=== PATIENT | female | born 1935 | race African-American/Black ===

== ENCOUNTER 2017-03-06 16:05 | Inpatient (IN) | payer OTHER ==
[~2017-03-06] VITALS: Ht 152.4 cm; Wt 36.8 kg
--- NOTE | 2017-03-06 17:00 | NUR ---
IV STARTED IN L AC X 1 ATTEMPT PER STAR KRISHNAMURTHY RN. SL IN PLACE.
[2017-03-06 18:30] LABS: PLATELET COUNT 372 K/uL (152-353)
[2017-03-06 18:32] VITALS: BP 172/69; TEMP 98; Ht 152.4 cm; Wt 36.8 kg
[2017-03-06] MEDS ORDERED: IRON COMPLEX OR (18:43)
[2017-03-06] MEDS ORDERED: ASCO500T18 PO (18:43)
[2017-03-06] MEDS ORDERED: NAMENDA5 MG OR (18:45)
[2017-03-06] MEDS ORDERED: PRAVASTATIN10 MG PO (18:46)
[2017-03-06] MEDS ORDERED: ZESTRIL40 MG OR (18:46)
[2017-03-06] MEDS ORDERED: DONE5TAB PO (18:47)
[2017-03-06] MEDS ORDERED: FLONASE AL50 MCG/ACT (18:48)
[2017-03-06 18:52] LABS: POTASSIUM 4.1 mmol/L (3.6-5.2)
[2017-03-06 20:00] VITALS: BP 129/58; TEMP 98.3
[2017-03-07] VITALS: BP 155/68; TEMP 98
[2017-03-07 03:35] LABS: PLATELET COUNT 275 K/uL (152-353)
[2017-03-07 04:00] VITALS: BP 121/53; TEMP 97.9
[2017-03-07 08:00] VITALS: BP 114/53; TEMP 98.8
[2017-03-07 12:00] VITALS: BP 100/53; TEMP 98.6
[2017-03-07 16:00] VITALS: BP 177/66; TEMP 98.8
[2017-03-07 17:40] LABS: POTASSIUM 3.9 mmol/L (3.6-5.2)
[2017-03-07 20:00] VITALS: BP 174/66; TEMP 97.9
[2017-03-08] VITALS: BP 161/68; TEMP 98.2
[2017-03-08 04:00] VITALS: BP 170/69; TEMP 98.1
[2017-03-08 05:31] LABS: POTASSIUM 3.6 mmol/L (3.6-5.2)
[2017-03-08 08:00] VITALS: BP 151/53; TEMP 98.5
[2017-03-08 10:16] LABS: PLATELET COUNT 323 K/uL (152-353)
[2017-03-08 12:00] VITALS: BP 151/61; TEMP 97.8
--- NOTE | 2017-03-08 16:30 | NUR ---
IV SITE D/C'D WITH TIP INTACT AND SITE CARE DONE. PT'S DAUGHTER GIVEN D/C INSTRUCTIONS AND SHE VERBALIZES UNDERSTANDING. PT INQUIRED AB OBTAINING EMERGENCY MEDICAID FOR PT AND PATRIC WILL GET IN TOUCH WITH PT ONCE SHE FINDS OUT IF PT QUALIFIES. PT OUT VIA W/C PER URVASHI NOVAK PCT WITH NAD.
== END 2017-03-08 16:16 | disposition home or self-care (01) | DRG 690 ==
LOC: MED/SURG 16:05
PROVIDERS: ADMIT Family Medicine
PROC: 30233N1 Transfusion of Nonautologous Red Blood Cells into Peripheral Vein, Percutaneous Approach (ICD-10-PCS; 2017-03-07)
PROC: 30233N1 Transfusion of Nonautologous Red Blood Cells into Peripheral Vein, Percutaneous Approach (ICD-10-PCS; principal; 2017-03-08)
DX: N39.0 Urinary tract infection, site not specified (principal); I10 Essential (primary) hypertension; F03.90 Unspecified dementia, unspecified severity, without behavioral disturbance, psychotic disturbance, mood disturbance, and anxiety; D64.89 Other specified anemias; E11.9 Type 2 diabetes mellitus without complications
CPT/HCPCS: 36415; 36430; 80053; 81000; 82550; 82948; 83735; 84484; 85027; 85610; 86850; 86900; 86901; 86922; 87040; 87088; 93005; 96365; 96366; 96372; J1650; P9016